=== PATIENT | male | born 1960 | race Caucasian/White ===

== ENCOUNTER 2020-12-24 08:24 | Day surgery (SDC) | payer BC ==
[~2020-12-24 08:24] MED LIST: Midazolam 1 MG/ML 2 ML SDV ONE; Propofol 200 MG/20 ML SDV ONE; fentaNYL 100 MCG/2 ML SDV ONE
[2020-12-24] MEDS ORDERED: Sodium Chloride 0.9% 1,000 ML IV SCH (09:00)
--- NOTE | 2020-12-24 15:32 | OR ---
DATE OF PROCEDURE: 12/24/2020 SURGEON: Deonte Lemus MD PROCEDURE: Colonoscopy. FINDINGS: Normal colonoscopy. PREOPERATIVE DIAGNOSIS: Screening colonoscopy. POSTOPERATIVE DIAGNOSIS: Screening colonoscopy. RISKS: Risks, benefits, alternatives, and limitations including, but not limited to infection, bleeding, perforation, false positives and false negatives were explained to the patient who wished to proceed. PROCEDURE IN DETAIL: Patient was placed in left lateral decubitus position. Digital rectal exam was performed without abnormality. Scope was introduced and advanced atraumatically to the ileocecal valve. Scope was brought back to the ascending, transverse, descending colon, and retroflexed. No evidence of old or new blood. No masses. No polyps. No diverticulosis. No colitis. No abnormalities on retroflexion. Greater than 8 minutes was spent removing the scope. Prep was acceptable, approximately 90% luminal surface could be seen. Deonte Lemus MD /[id number]
== END 2020-12-24 11:35 | disposition home or self-care (01) ==
LOC: JP.SDS 08:24
PROVIDERS: ATTEND Surgery
DX: Z12.11 Encounter for screening for malignant neoplasm of colon (principal); F17.200 Nicotine dependence, unspecified, uncomplicated; E11.9 Type 2 diabetes mellitus without complications; Z88.8 Allergy status to other drugs, medicaments and biological substances
CPT/HCPCS: 45378; J2250; J2704; J3010; J7030

== ENCOUNTER 2021-09-10 13:56 | Emergency (ER) | payer BC ==
[2021-09-10] MEDS ORDERED: Adenosine 6 MG/2 ML SDV IVPUSH ONE (15:21)
[2021-09-10] MEDS ORDERED: Furosemide 40 MG/4 ML VIAL IVPUSH ONE (15:39)
[2021-09-10] MEDS ORDERED: Digoxin 500 MCG/2 ML Amp IVPUSH ONE (16:18)
== END 2021-09-10 17:05 ==
LOC: JP.ED 13:56
DX: J90 Pleural effusion, not elsewhere classified (principal); I48.4 Atypical atrial flutter; I50.9 Heart failure, unspecified; E11.9 Type 2 diabetes mellitus without complications; Z88.8 Allergy status to other drugs, medicaments and biological substances; E78.00 Pure hypercholesterolemia, unspecified; Z79.899 Other long term (current) drug therapy; Z87.891 Personal history of nicotine dependence
CPT/HCPCS: 36415; 71045; 71045-26; 83735; 83880; 84484; 93005; 96374; 96375; 99284; 99285-25; J0153; J1160; J1940

== ENCOUNTER 2021-09-30 01:12 | Emergency (ER) | payer BC ==
[2021-09-30] MEDS ORDERED: Sodium Chloride 0.9% 10 ML Syringe FLUSH PRN (01:14)
[2021-09-30] MEDS ORDERED: Calcium Gluconate 10% 1 GM/10 ML SDV IVPUSH ONE (02:20)
== END 2021-09-30 03:23 | disposition home or self-care (01) ==
LOC: JP.ED 01:12
DX: F41.9 Anxiety disorder, unspecified (principal); E83.51 Hypocalcemia; E78.00 Pure hypercholesterolemia, unspecified; E11.59 Type 2 diabetes mellitus with other circulatory complications; I50.9 Heart failure, unspecified; E07.81 Sick-euthyroid syndrome; Z88.8 Allergy status to other drugs, medicaments and biological substances; Z79.01 Long term (current) use of anticoagulants; Z79.899 Other long term (current) drug therapy
CPT/HCPCS: 36415; 71045; 71045-26; 80053; 83880; 84439; 84443; 84484; 85025; 85610; 85730; 93005; 93010; 96374; 99283; 99285-25; J0610; J3490